=== PATIENT | female | born 1975 | race Two or more races ===

== ENCOUNTER 2024-12-28 22:44 | Emergency (ER) | payer OTHER ==
[2024-12-28 23:10] VITALS: RESP 18; BMI 20.5
[2024-12-29] MEDS ORDERED: ACETAMINOPHEN INJECTION 100 ML ONE (00:36)
[2024-12-29] MEDS: ACETAMINOPHEN 1000 MG/100 ML BAG IVPB ONE (00:51)
[2024-12-29 01:02] LABS: ABSOLUTE IMMATURE GRANULOCYTES 0.01 x10^3/uL (0.0-0.031); BASOPHILS # 0.04 x10^3/uL (0.01-0.08); EOSINOPHIL % 0.9 % (0.7-5.8); EOSINOPHILS # 0.05 x10^3/uL (0.04-0.36); MCHC 34.0 g/dl (32.2-35.5); MEAN CELL VOLUME 88.4 fl (79.4-94.8); MEAN PLT VOLUME 10.1 fl (9.4-12.3); MONOCYTE # 0.43 x10^3/uL (0.24-0.86); MONOCYTE % 7.8 % (4.7-12.5); RDW 11.6 % (12.3-16.6)
[2024-12-29 01:30] LABS: INR 0.98 (0.83-1.09); PROTHROMBIN TIME (PATIENT) 10.7 SEC (9.7-13.0)
[2024-12-29 01:33] LABS: ACTIVATED PTT 32.7 SECONDS (25.2-36.5)
[2024-12-29 01:34] LABS: GLUCOSE,RANDOM 140.0 mg/dL (74-106); TOT PROT 7.4 g/dl (6.4-8.2)
[2024-12-29 01:34] LABS: EPI CELLS 1 /uL (0-25.1); HYALINE CASTS 0 /uL (0-3.1); URINE APPEARANCE CLOUDY; URINE BILIRUBIN 2+ (NEGATIVE); URINE COLOR RED; URINE GLUCOSE (UA) NEGATIVE (NEGATIVE); URINE KETONE NEGATIVE (NEGATIVE); URINE LEUK ESTERASE 2+ (NEGATIVE); URINE NITRITE POSITIVE (NEGATIVE); URINE PROTEIN 3+ (NEGATIVE); URINE RBC 14466 /uL (0-23.9); URINE UROBILINOGEN 0.2 mg/dL (0.2-1.0); URINE WBC 22 /uL (0-25.8)
[2024-12-29 01:36] LABS: CO2 28.0 mmol/L (21-32)
[2024-12-29 01:37] LABS: ALK PHOS 127.0 U/L (40-150)
[2024-12-29 01:40] LABS: SGOT/AST 34.0 U/L (5-34); SGPT/ALT 37.0 U/L (0-55)
[2024-12-29 02:01] LABS: HIV INTERPRETATION NEGATIVE (NEGATIVE)
[2024-12-29 02:02] LABS: HCV DIAGNOSTIC IN-HOUSE W/RFLX NON-REACTIVE (NONREACTIVE)
[2024-12-29 02:17] LABS: CREATININE 0.74 mg/dL (0.55-1.3)
[2024-12-29 03:59] VITALS: BP 108/65; PULSE 85; TEMP 97.5
[2024-12-29 05:17] LABS: ABSOLUTE IMMATURE GRANULOCYTES 0.01 x10^3/uL (0.0-0.031); BASOPHILS # 0.03 x10^3/uL (0.01-0.08); EOSINOPHIL % 0.6 % (0.7-5.8); EOSINOPHILS # 0.03 x10^3/uL (0.04-0.36); MCHC 33.6 g/dl (32.2-35.5); MEAN CELL VOLUME 88.8 fl (79.4-94.8); MEAN PLT VOLUME 10.6 fl (9.4-12.3); MONOCYTE # 0.40 x10^3/uL (0.24-0.86); MONOCYTE % 7.3 % (4.7-12.5); RDW 11.8 % (12.3-16.6)
== END 2024-12-29 06:26 | disposition home or self-care (01) ==
LOC: JER 22:44
PROC: 3E033NZ Introduction of Analgesics, Hypnotics, Sedatives into Peripheral Vein, Percutaneous Approach (ICD-10-PCS; principal; 2024-12-28)
DX: S31.41XA Laceration without foreign body of vagina and vulva, initial encounter (principal); R10.32 Left lower quadrant pain; R00.0 Tachycardia, unspecified; X58.XXXA Exposure to other specified factors, initial encounter
CPT/HCPCS: 36415; 76830-TC; 80053; 81003; 84703; 85025; 85610; 85730; 86803; 86850; 86900; 86901; 87086; 87389; 99285-25